=== PATIENT | male | born 1960 | race Hispanic/Latino ===

== ENCOUNTER 2022-03-03 08:36 | Day surgery (SDC) | payer BC ==
[2022-03-01 12:47] VITALS: BMI 35.6
== END 2022-03-03 10:43 | disposition home or self-care (01) ==
LOC: CSHSDC 08:36
PROVIDERS: ATTEND Internal Medicine Gastroenterology
PROC: 0DBK8ZZ Excision of Ascending Colon, Via Natural or Artificial Opening Endoscopic (ICD-10-PCS; principal; 2022-03-03)
DX: D12.2 Benign neoplasm of ascending colon (principal); K57.30 Diverticulosis of large intestine without perforation or abscess without bleeding; K64.9 Unspecified hemorrhoids; K21.9 Gastro-esophageal reflux disease without esophagitis; E11.9 Type 2 diabetes mellitus without complications; I10 Essential (primary) hypertension; E78.5 Hyperlipidemia, unspecified; Z79.4 Long term (current) use of insulin; Z79.899 Other long term (current) drug therapy
CPT/HCPCS: 88305

== ENCOUNTER 2022-08-27 08:38 | Emergency (ER) | payer BC ==
[2022-08-27] MEDS ORDERED: HYDROcodone/Acetaminophen 5/325 mg Tablet ONE (09:11)
[2022-08-27] MEDS ORDERED: Ketorolac Tromethamine 30 MG/ML VIAL ONE (09:14)
== END 2022-08-27 11:28 | disposition home or self-care (01) ==
LOC: CSHERS 08:38
DX: S52.572A Other intraarticular fracture of lower end of left radius, initial encounter for closed fracture (principal); E78.00 Pure hypercholesterolemia, unspecified; I10 Essential (primary) hypertension; E11.9 Type 2 diabetes mellitus without complications; Z79.84 Long term (current) use of oral hypoglycemic drugs; Z79.899 Other long term (current) drug therapy; W18.30XA Fall on same level, unspecified, initial encounter
CPT/HCPCS: 29085; 72100; 72131; J1885

== ENCOUNTER 2022-12-07 17:47 | Inpatient (IN) | payer BC ==
[2022-12-07 18:37] LABS: #Eosinphils 0.2 10x3/uL (0.0-0.5); #Monocytes 0.8 10x3/uL (0.0-1.1); #Neutrophils 5.1 10x3/uL (1.5-8.4); %Basophils 0.5 % (0.0-2.0); %Eosinophils 2.2 % (0.0-6.0); %Lymphocytes 19.7 % (18.0-47.0); %Neutrophils 67.3 % (40.0-75.0); Hemoglobin 13.4 g/dL (13.5-17.5); Mean Corpuscular HGB CONC 33.3 g/dL (32.0-36.0); Mean Corpuscular Hemoglobin 31.5 pg (27.0-33.0); Mean Corpuscular Volume 94.6 fl (81.2-95.1); Mean Platelet Volume 10.6 fl (7.4-10.4); Platelet Count 303 10x3/uL (150-450); Red Blood Cell (RBC) Count 4.26 10x6/uL (4.32-5.72); White Blood Cell (WBC) Count 7.6 10x3/uL (3.5-10.5)
[2022-12-07 18:50] LABS: ALT (SGPT) 24 U/L (8-55); AST (SGOT) 16 U/L (5-34); Albumin 3.9 g/dL (3.4-4.8); Alkaline Phosphatase 72 U/L (40-110); Anion Gap 14 mmol/L (10-20); BUN (Urea Nitrogen) 50 mg/dL (8.4-25.7); Bilirubin, Total 0.4 mg/dL (0.2-1.2); Calc. Creatinine Clearance 0 mL/min (70-130); Calcium 10.5 mg/dL (7.8-10.44); Carbon Dioxide 16 mmol/L (23-31); Chloride 106 mmol/L (98-107); Estimated GFR 15; Globulin 3.9 g/dL (2.4-3.5); Glucose 245 mg/dL (80-115); Magnesium 2.4 mg/dL (1.6-2.6); Protein, Total 7.8 g/dL (5.8-8.1); Sodium 131 mmol/L (136-145)
[2022-12-07] MEDS ORDERED: Ondansetron PF 4 MG/2 ML Vial ONE (19:27)
[2022-12-07 20:19] LABS: SARS-CoV-2 NAA Rapid Test Not Detected (NotDetected)
[2022-12-07] MEDS ORDERED: Ondansetron ODT 4 MG TAB PO PRN (20:43)
[2022-12-07] MEDS ORDERED: Glucagon 1 MG/ML KIT IM PRN (20:43)
[2022-12-07] MEDS ORDERED: HumaLOG 300 UNITS/3 ML VIAL SC PRN (20:43)
[2022-12-07] MEDS ORDERED: Dextrose 50% Abboject 50 ML SYRINGE SLOW IVP PRN (20:43)
[2022-12-07] MEDS ORDERED: Dextrose 5% in Water 1,000 ML IV PRN (20:43)
[2022-12-07] MEDS ORDERED: Heparin 5,000 UNITS/ML VIAL ONE (22:44)
[2022-12-07] MEDS: Heparin 5,000 UNITS/ML VIAL SC SCH (22:45)
[2022-12-07] MEDS: Sodium Chloride 0.9% 1,000 ML IV SCH (22:46)
[2022-12-08 03:34] LABS: #Eosinphils 0.3 10x3/uL (0.0-0.5); #Monocytes 0.9 10x3/uL (0.0-1.1); #Neutrophils 3.2 10x3/uL (1.5-8.4); %Basophils 0.4 % (0.0-2.0); %Eosinophils 4.1 % (0.0-6.0); %Monocytes 12.9 % (0.0-10.0); %Neutrophils 46.3 % (40.0-75.0); Hemoglobin 11.2 g/dL (13.5-17.5); Mean Corpuscular HGB CONC 32.7 g/dL (32.0-36.0); Mean Corpuscular Hemoglobin 31.5 pg (27.0-33.0); Mean Corpuscular Volume 96.3 fl (81.2-95.1); Mean Platelet Volume 10.3 fl (7.4-10.4); Platelet Count 213 10x3/uL (150-450); Red Blood Cell (RBC) Count 3.55 10x6/uL (4.32-5.72); White Blood Cell (WBC) Count 6.9 10x3/uL (3.5-10.5)
[2022-12-08 03:43] LABS: Anion Gap 11 mmol/L (10-20); BUN (Urea Nitrogen) 51 mg/dL (8.4-25.7); Calc. Creatinine Clearance 39 mL/min (70-130); Calcium 9.1 mg/dL (7.8-10.44); Carbon Dioxide 16 mmol/L (23-31); Chloride 111 mmol/L (98-107); Estimated GFR 20; Glucose 115 mg/dL (80-115); Magnesium 2.2 mg/dL (1.6-2.6); Phosphorus 4.6 mg/dL (2.3-4.7); Potassium 4.2 mmol/L (3.5-5.1); Sodium 134 mmol/L (136-145)
[2022-12-08] MEDS: Sodium Chloride 0.9% 1,000 ML IV SCH (05:57)
[2022-12-08] MEDS ORDERED: Heparin 5,000 UNITS/ML VIAL ONE ×2 (08:31→14:54)
[2022-12-08] MEDS ORDERED: Atorvastatin Calcium 40 MG TAB ONE (08:34)
[2022-12-08] MEDS: Atorvastatin Calcium 40 MG TAB PO SCH (08:50)
[2022-12-08] MEDS: Heparin 5,000 UNITS/ML VIAL SC SCH ×3 (08:50→21:34)
[2022-12-08] MEDS: Lactated Ringer's 1,000 ML IV SCH ×2 (11:28→17:20)
[2022-12-09] MEDS: Lactated Ringer's 1,000 ML IV SCH ×2 (03:41→09:29)
[2022-12-09 08:46] LABS: Anion Gap 10 mmol/L (10-20); BUN (Urea Nitrogen) 32 mg/dL (8.4-25.7); Calc. Creatinine Clearance 75 mL/min (70-130); Calcium 8.9 mg/dL (7.8-10.44); Carbon Dioxide 17 mmol/L (23-31); Chloride 117 mmol/L (98-107); Estimated GFR 42; Glucose 111 mg/dL (80-115); Potassium 4.4 mmol/L (3.5-5.1); Sodium 140 mmol/L (136-145)
[2022-12-09] MEDS: Heparin 5,000 UNITS/ML VIAL SC SCH (09:29)
[2022-12-09] MEDS: Atorvastatin Calcium 40 MG TAB PO SCH (09:29)
[2022-12-09 13:25] VITALS: BP 158/74; TEMP 98.1
== END 2022-12-09 13:46 | disposition home or self-care (01) | DRG 683 ==
LOC: CSHERS 17:47 → SUATTDRO 17:47 → CSHERHOLD 20:55 → CSHTELE 12-08 15:46
PROVIDERS: ADMIT Family Medicine; ATTEND Internal Medicine
DX: N17.9 Acute kidney failure, unspecified (principal); E87.1 Hypo-osmolality and hyponatremia; E86.0 Dehydration; I95.9 Hypotension, unspecified; R19.7 Diarrhea, unspecified; E78.5 Hyperlipidemia, unspecified; E78.00 Pure hypercholesterolemia, unspecified; E11.22 Type 2 diabetes mellitus with diabetic chronic kidney disease; N18.9 Chronic kidney disease, unspecified; E11.65 Type 2 diabetes mellitus with hyperglycemia; I12.9 Hypertensive chronic kidney disease with stage 1 through stage 4 chronic kidney disease, or unspecified chronic kidney disease; E87.8 Other disorders of electrolyte and fluid balance, not elsewhere classified; Z79.899 Other long term (current) drug therapy; Z79.4 Long term (current) use of insulin; Z79.84 Long term (current) use of oral hypoglycemic drugs; Z98.890 Other specified postprocedural states; Z20.822 Contact with and (suspected) exposure to COVID-19
CPT/HCPCS: 36415; 36416; 74176; 80048; 80053; 83735; 84100; 84443; 85025; 94760; 96374; J1644; J1815; J2405; J7050; J7120

== ENCOUNTER 2023-02-13 16:13 | Inpatient (IN) | payer BC ==
[2023-02-13 16:55] VITALS: BMI 33.0
[2023-02-13] MEDS ORDERED: Ondansetron PF 4 MG/2 ML Vial IVP PRN (17:25)
[2023-02-13] MEDS ORDERED: Acetaminophen 325 MG TAB PO PRN (17:25)
[2023-02-13] MEDS ORDERED: HYDROcodone/Acetaminophen 5/325 mg Tablet PO PRN (17:25)
[2023-02-13 17:42] LABS: #Eosinphils 0.2 10x3/uL (0.0-0.5); #Monocytes 0.6 10x3/uL (0.0-1.1); #Neutrophils 6.8 10x3/uL (1.5-8.4); %Basophils 0.3 % (0.0-2.0); %Eosinophils 1.8 % (0.0-6.0); %Lymphocytes 15.5 % (18.0-47.0); %Monocytes 6.6 % (0.0-10.0); %Neutrophils 75.2 % (40.0-75.0); Hematocrit 28.8 % (38.8-50.0); Hemoglobin 9.7 g/dL (13.5-17.5); Mean Corpuscular HGB CONC 33.7 g/dL (32.0-36.0); Mean Corpuscular Hemoglobin 31.4 pg (27.0-33.0); Mean Corpuscular Volume 93.2 fl (81.2-95.1); Mean Platelet Volume 9.7 fl (7.4-10.4); Platelet Count 426 10x3/uL (150-450); RBC Distribution Width 12.8 % (11.5-14.5); Red Blood Cell (RBC) Count 3.09 10x6/uL (4.32-5.72)
[2023-02-13] MEDS ORDERED: Dextrose 50% Abboject 50 ML SYRINGE SLOW IVP PRN (17:55)
[2023-02-13] MEDS ORDERED: Dextrose 5% in Water 1,000 ML IV PRN (17:55)
[2023-02-13] MEDS ORDERED: Glucagon 1 MG/ML KIT IM PRN (17:55)
[2023-02-13 18:03] LABS: Anion Gap 16 mmol/L (10-20); BUN (Urea Nitrogen) 29 mg/dL (8.4-25.7); Calc. Creatinine Clearance 55 mL/min (70-130); Carbon Dioxide 21 mmol/L (23-31); Chloride 98 mmol/L (98-107); Estimated GFR 33; Glucose 200 mg/dL (80-115); Potassium 4.1 mmol/L (3.5-5.1); Sodium 131 mmol/L (136-145)
[2023-02-14 04:47] LABS: Anion Gap 14 mmol/L (10-20); BUN (Urea Nitrogen) 27 mg/dL (8.4-25.7); Calc. Creatinine Clearance 64 mL/min (70-130); Calcium 8.7 mg/dL (7.8-10.44); Carbon Dioxide 24 mmol/L (23-31); Chloride 99 mmol/L (98-107); Estimated GFR 39; Glucose 143 mg/dL (80-115); Potassium 3.7 mmol/L (3.5-5.1); Sodium 133 mmol/L (136-145)
[2023-02-14 04:49] LABS: #Eosinphils 0.2 10x3/uL (0.0-0.5); #Monocytes 0.7 10x3/uL (0.0-1.1); #Neutrophils 5.6 10x3/uL (1.5-8.4); %Basophils 0.2 % (0.0-2.0); %Eosinophils 2.6 % (0.0-6.0); %Lymphocytes 18.8 % (18.0-47.0); %Monocytes 9.1 % (0.0-10.0); %Neutrophils 68.8 % (40.0-75.0); Hematocrit 27.7 % (38.8-50.0); Hemoglobin 9.2 g/dL (13.5-17.5); Mean Corpuscular HGB CONC 33.2 g/dL (32.0-36.0); Mean Corpuscular Hemoglobin 30.7 pg (27.0-33.0); Mean Corpuscular Volume 92.3 fl (81.2-95.1); Mean Platelet Volume 9.6 fl (7.4-10.4); Platelet Count 406 10x3/uL (150-450); RBC Distribution Width 12.8 % (11.5-14.5); White Blood Cell (WBC) Count 8.2 10x3/uL (3.5-10.5)
[2023-02-14] MEDS: Atorvastatin Calcium 40 MG TAB PO SCH (09:30)
[2023-02-14] MEDS: Allopurinol 300 MG TAB PO SCH (09:31)
[2023-02-14] MEDS: Lantus 1000 UNITS/10 ML VIAL SC SCH (09:34)
[2023-02-14] MEDS: Sodium Chloride 0.9% 1,000 ML IV SCH ×2 (09:41→21:36)
[2023-02-14] MEDS ORDERED: Magnevist 469MG/ML 20 ML VIAL ONE (10:38)
[2023-02-14] MEDS ORDERED: Bupivacaine 0.25% HCL 30 ML VIAL ONE (12:30)
[2023-02-14] MEDS ORDERED: Bupivacaine PF 0.5% 30 ML VIAL ONE (12:50)
[2023-02-14] MEDS ORDERED: CEFAZOLIN 2 GM VIAL ONE (13:17)
[2023-02-14] MEDS ORDERED: Vancomycin 1 GM VIAL ONE (13:18)
[2023-02-14] MEDS ORDERED: Dexamethasone 20 MG/5 ML VIAL ONE (13:25)
[2023-02-14] MEDS ORDERED: Ondansetron PF 4 MG/2 ML Vial ONE (13:25)
[2023-02-14] MEDS ORDERED: PROPOFOL 20 ML ONE (13:25)
[2023-02-14] MEDS ORDERED: fentaNYL 50 mcg/mL 1 mL Vial ONE (13:25)
[2023-02-14] MEDS ORDERED: Midazolam HCl 2 mg/2 ml Vial ONE (13:25)
[2023-02-14] MEDS ORDERED: Lidocaine 2% PF 5 ML VIAL ONE (13:26)
[2023-02-14 13:30] LABS: Hemoglobin A1c 9.1 % (4.0-6.0)
[2023-02-14] MEDS ORDERED: PHENYLEPHRINE-NS 100 MCG/ML 10 ML SYRINGE ONE (13:56)
[2023-02-14] MEDS ORDERED: Glycopyrrolate 0.2 MG/ML 5 ML SYRINGE ONE (14:08)
[2023-02-14] MEDS ORDERED: traMADol HCl 50 MG TAB PO PRN (18:45)
[2023-02-14] MEDS: Insulin Regular 300 UNITS/3 ML VIAL SC PRN (21:15)
[2023-02-15 04:05] LABS: Anion Gap 17 mmol/L (10-20); BUN (Urea Nitrogen) 34 mg/dL (8.4-25.7); Calc. Creatinine Clearance 61 mL/min (70-130); Calcium 8.6 mg/dL (7.8-10.44); Carbon Dioxide 19 mmol/L (23-31); Chloride 99 mmol/L (98-107); Estimated GFR 37; Glucose 337 mg/dL (80-115); Potassium 4.8 mmol/L (3.5-5.1); Sodium 130 mmol/L (136-145)
[2023-02-15 04:51] LABS: #Monocytes 0.1 10x3/uL (0.0-1.1); #Neutrophils 7.9 10x3/uL (1.5-8.4); %Basophils 0.1 % (0.0-2.0); %Lymphocytes 6.8 % (18.0-47.0); %Monocytes 1.6 % (0.0-10.0); %Neutrophils 91.2 % (40.0-75.0); Hematocrit 29.1 % (38.8-50.0); Hemoglobin 9.6 g/dL (13.5-17.5); Mean Corpuscular Hemoglobin 30.4 pg (27.0-33.0); Mean Corpuscular Volume 92.1 fl (81.2-95.1); Mean Platelet Volume 9.4 fl (7.4-10.4); Platelet Count 437 10x3/uL (150-450); RBC Distribution Width 12.6 % (11.5-14.5); Red Blood Cell (RBC) Count 3.16 10x6/uL (4.32-5.72); White Blood Cell (WBC) Count 8.6 10x3/uL (3.5-10.5)
[2023-02-15] MEDS: Lantus 1000 UNITS/10 ML VIAL SC SCH (05:55)
[2023-02-15] MEDS: Insulin Regular 300 UNITS/3 ML VIAL SC PRN (05:58)
[2023-02-15] MEDS: Atorvastatin Calcium 40 MG TAB PO SCH (08:18)
[2023-02-15] MEDS: Allopurinol 300 MG TAB PO SCH (08:18)
[2023-02-15 08:41] VITALS: TEMP 97.6
[2023-02-15] MEDS: Sodium Chloride 0.9% 1,000 ML IV SCH (09:25)
[2023-02-15] MEDS ORDERED: Amoxicillin/Potassium Clav 875 MG TAB PO SCH ×2 (11:45→21:00)
[2023-02-15 12:18] VITALS: BP 136/66
[2023-02-15] MEDS ORDERED: Morphine 2 MG/ML VIAL SLOW IVP SCH (13:00)
== END 2023-02-15 16:00 | disposition home or self-care (01) | DRG 617 ==
LOC: CSHTELE 16:25
PROVIDERS: ADMIT Internal Medicine; ATTEND Hospitalist
PROC: 0Y6P0Z0 Detachment at Right 1st Toe, Complete, Open Approach (ICD-10-PCS; principal; 2023-02-14)
DX: E11.69 Type 2 diabetes mellitus with other specified complication (principal); M86.9 Osteomyelitis, unspecified; E78.5 Hyperlipidemia, unspecified; M10.9 Gout, unspecified; Z79.84 Long term (current) use of oral hypoglycemic drugs; Z79.4 Long term (current) use of insulin; Z98.890 Other specified postprocedural states; Z83.3 Family history of diabetes mellitus; E11.40 Type 2 diabetes mellitus with diabetic neuropathy, unspecified; I12.9 Hypertensive chronic kidney disease with stage 1 through stage 4 chronic kidney disease, or unspecified chronic kidney disease; N18.30 Chronic kidney disease, stage 3 unspecified; E11.22 Type 2 diabetes mellitus with diabetic chronic kidney disease
CPT/HCPCS: 36415; 36416; 71045; 80048; 83036; 85025; 85652; 87070; 87077; 87102; 87116; 87205; 87206; 88305; 88311; 93005; 93010; 97139; A9579; C1713; J1100; J1815; J2001; J2250; J2272; J2405; J2704; J3010; J3370; J7050; S0020

== ENCOUNTER 2023-04-21 09:00 | Emergency (ER) | payer BC ==
[2023-04-21 10:31] LABS: #Eosinphils 0.2 10x3/uL (0.0-0.5); #Monocytes 0.4 10x3/uL (0.0-1.1); #Neutrophils 2.4 10x3/uL (1.5-8.4); %Basophils 0.8 % (0.0-2.0); %Eosinophils 3.8 % (0.0-6.0); %Lymphocytes 42.2 % (18.0-47.0); %Monocytes 8.1 % (0.0-10.0); %Neutrophils 44.9 % (40.0-75.0); Hematocrit 32.6 % (38.8-50.0); Hemoglobin 10.7 g/dL (13.5-17.5); Mean Corpuscular HGB CONC 32.8 g/dL (32.0-36.0); Mean Corpuscular Volume 94.5 fl (81.2-95.1); Mean Platelet Volume 10.5 fl (7.4-10.4); Platelet Count 213 10x3/uL (150-450); RBC Distribution Width 14.6 % (11.5-14.5); Red Blood Cell (RBC) Count 3.45 10x6/uL (4.32-5.72); White Blood Cell (WBC) Count 5.3 10x3/uL (3.5-10.5)
[2023-04-21 10:46] LABS: Anion Gap 17 mmol/L (10-20); BUN (Urea Nitrogen) 50 mg/dL (8.4-25.7); Calc. Creatinine Clearance 0 mL/min (70-130); Carbon Dioxide 19 mmol/L (23-31); Chloride 109 mmol/L (98-107); Sodium 140 mmol/L (136-145)
[2023-04-21 10:47] LABS: ALT (SGPT) 24 U/L (8-55); AST (SGOT) 21 U/L (5-34); Albumin 4.2 g/dL (3.4-4.8); Alkaline Phosphatase 59 U/L (40-110); Bilirubin, Total 0.5 mg/dL (0.2-1.2); Estimated GFR 31; Globulin 3.2 g/dL (2.4-3.5); Glucose 90 mg/dL (80-115); Magnesium 2.1 mg/dL (1.6-2.6); Protein, Total 7.4 g/dL (5.8-8.1)
[2023-04-21 14:49] LABS: Anion Gap 14 mmol/L (10-20); BUN (Urea Nitrogen) 47 mg/dL (8.4-25.7); Calc. Creatinine Clearance 0 mL/min (70-130); Calcium 9.1 mg/dL (7.8-10.44); Carbon Dioxide 18 mmol/L (23-31); Chloride 113 mmol/L (98-107); Estimated GFR 39; Glucose 73 mg/dL (80-115); Potassium 5.2 mmol/L (3.5-5.1); Sodium 140 mmol/L (136-145)
== END 2023-04-21 15:18 | disposition home or self-care (01) ==
LOC: CSHERS 09:00
DX: N17.9 Acute kidney failure, unspecified (principal); E11.9 Type 2 diabetes mellitus without complications; E78.5 Hyperlipidemia, unspecified; I10 Essential (primary) hypertension; Z79.84 Long term (current) use of oral hypoglycemic drugs; Z79.02 Long term (current) use of antithrombotics/antiplatelets
CPT/HCPCS: 36415; 80053; 83735; 85025; 93005; 96360; 96361

== ENCOUNTER 2023-06-22 13:35 | Inpatient (IN) | payer BC ==
[2023-06-22 14:27] LABS: #Eosinphils 0.2 10x3/uL (0.0-0.5); #Monocytes 0.5 10x3/uL (0.0-1.1); #Neutrophils 2.6 10x3/uL (1.5-8.4); %Basophils 0.8 % (0.0-2.0); %Eosinophils 4.2 % (0.0-6.0); %Lymphocytes 34.5 % (18.0-47.0); %Neutrophils 51.3 % (40.0-75.0); Hematocrit 30.7 % (38.8-50.0); Hemoglobin 10.2 g/dL (13.5-17.5); Mean Corpuscular HGB CONC 33.2 g/dL (32.0-36.0); Mean Corpuscular Hemoglobin 31.8 pg (27.0-33.0); Mean Corpuscular Volume 95.6 fl (81.2-95.1); Mean Platelet Volume 10.1 fl (7.4-10.4); Platelet Count 263 10x3/uL (150-450); RBC Distribution Width 14.3 % (11.5-14.5); Red Blood Cell (RBC) Count 3.21 10x6/uL (4.32-5.72)
[2023-06-22 14:47] LABS: ALT (SGPT) 16 U/L (8-55); AST (SGOT) 16 U/L (5-34); Albumin 3.7 g/dL (3.4-4.8); Alkaline Phosphatase 66 U/L (40-110); Anion Gap 14 mmol/L (10-20); BUN (Urea Nitrogen) 19 mg/dL (8.4-25.7); Bilirubin, Total 0.3 mg/dL (0.2-1.2); Calc. Creatinine Clearance 0 mL/min (70-130); Calcium 9.5 mg/dL (7.8-10.44); Carbon Dioxide 22 mmol/L (23-31); Chloride 109 mmol/L (98-107); Estimated GFR 53; Globulin 3.3 g/dL (2.4-3.5); Glucose 174 mg/dL (80-115); Potassium 4.7 mmol/L (3.5-5.1); Sodium 140 mmol/L (136-145)
[2023-06-22] MEDS ORDERED: Dextrose 50% Abboject 50 ML SYRINGE SLOW IVP PRN (18:45)
[2023-06-22] MEDS ORDERED: Insulin Regular 300 UNITS/3 ML VIAL SC PRN ×2 (18:45)
[2023-06-22] MEDS ORDERED: Glucagon 1 MG/ML KIT IM PRN (18:45)
[2023-06-22] MEDS ORDERED: Dextrose 5% in Water 1,000 ML IV PRN (18:45)
[2023-06-22] MEDS ORDERED: Ondansetron ODT 4 MG TAB PO PRN (18:46)
[2023-06-22] MEDS ORDERED: Acetaminophen 325 MG TAB PO PRN (18:46)
[2023-06-22] MEDS ORDERED: Ondansetron PF 4 MG/2 ML Vial IVP PRN (18:46)
[2023-06-22] MEDS ORDERED: Calcium Carbonate 500 MG ChewTAB PO PRN (18:46)
[2023-06-22] MEDS ORDERED: cefTRIAXone\\ROCEPHIN 2 GM in Sodium Chloride 0.9% 100 ML IVPB SCH ×2 (20:00→23:00)
[2023-06-22] MEDS ORDERED: VANCOMYCIN 1.75 GM/350 ML BAG 1.75 GM in Premix 1 BAG IVPB SCH (20:00)
[2023-06-22] MEDS ORDERED: Heparin 5,000 UNITS/ML VIAL SC SCH (21:00)
[2023-06-22 22:13] VITALS: BMI 32.8
[2023-06-22] MEDS: Sodium Chloride 0.9% 1,000 ML IV SCH (22:20)
[2023-06-22] MEDS: Famotidine 20 MG TAB PO SCH (22:21)
[2023-06-22] MEDS: metroNIDAZOLE 500 MG in Premix 1 BAG IVPB SCH (22:22)
[2023-06-22] MEDS: Lantus 1000 UNITS/10 ML VIAL SC SCH (22:28)
[2023-06-23] MEDS: metroNIDAZOLE 500 MG in Premix 1 BAG IVPB SCH ×2 (06:19→17:09)
[2023-06-23] MEDS: Famotidine 20 MG TAB PO SCH ×2 (08:42→21:00)
[2023-06-23] MEDS: Sodium Chloride 0.9% 1,000 ML IV SCH ×2 (08:59→21:25)
[2023-06-23] MEDS: Icosapent Ethyl 1 GM CAPSULE PO SCH ×2 (08:59→17:41)
[2023-06-23] MEDS: Amlodipine 5 MG TAB PO SCH (11:38)
[2023-06-23] MEDS: Hydrochlorothiazide 25 MG TAB PO SCH (11:38)
[2023-06-23] MEDS: Losartan 50 MG TAB PO SCH (11:39)
[2023-06-23] MEDS ORDERED: PROPOFOL 20 ML ONE ×2 (13:38→14:14)
[2023-06-23] MEDS ORDERED: Bupivacaine PF 0.5% 30 ML VIAL ONE (13:38)
[2023-06-23] MEDS ORDERED: Midazolam HCl 2 mg/2 ml Vial ONE (14:00)
[2023-06-23] MEDS ORDERED: fentaNYL 50 mcg/mL 1 mL Vial ONE (14:05)
[2023-06-23] MEDS ORDERED: traMADol HCl 50 MG TAB PO PRN (15:36)
[2023-06-23] MEDS: Senokot S 8.6-50 MG TAB PO SCH (21:00)
[2023-06-23] MEDS: Lantus 1000 UNITS/10 ML VIAL SC SCH (21:00)
[2023-06-23] MEDS: metroNIDAZOLE 500 MG TAB PO SCH (21:00)
[2023-06-23] MEDS: VANCOMYCIN 2 GRAM/400 ML BAG 2 GM in Premix 1 BAG IVPB SCH (23:10)
[2023-06-24] MEDS: cefTRIAXone\\ROCEPHIN 2 GM in Sodium Chloride 0.9% 100 ML IVPB SCH ×2 (00:13→23:54)
[2023-06-24 05:50] LABS: #Eosinphils 0.2 10x3/uL (0.0-0.5); #Monocytes 0.5 10x3/uL (0.0-1.1); #Neutrophils 2.8 10x3/uL (1.5-8.4); %Basophils 0.4 % (0.0-2.0); %Eosinophils 3.8 % (0.0-6.0); %Lymphocytes 31.8 % (18.0-47.0); %Monocytes 9.4 % (0.0-10.0); %Neutrophils 54.4 % (40.0-75.0); Hematocrit 26.7 % (38.8-50.0); Hemoglobin 9.1 g/dL (13.5-17.5); Mean Corpuscular HGB CONC 34.1 g/dL (32.0-36.0); Mean Corpuscular Volume 96.7 fl (81.2-95.1); Mean Platelet Volume 10.2 fl (7.4-10.4); Platelet Count 208 10x3/uL (150-450); RBC Distribution Width 14.4 % (11.5-14.5); Red Blood Cell (RBC) Count 2.76 10x6/uL (4.32-5.72); White Blood Cell (WBC) Count 5.2 10x3/uL (3.5-10.5)
[2023-06-24 06:15] LABS: Anion Gap 13 mmol/L (10-20); BUN (Urea Nitrogen) 18 mg/dL (8.4-25.7); Calc. Creatinine Clearance 88 mL/min (70-130); Calcium 8.6 mg/dL (7.8-10.44); Carbon Dioxide 21 mmol/L (23-31); Chloride 110 mmol/L (98-107); Estimated GFR 59; Glucose 129 mg/dL (80-115); Potassium 3.9 mmol/L (3.5-5.1); Sodium 140 mmol/L (136-145)
[2023-06-24] MEDS: Icosapent Ethyl 1 GM CAPSULE PO SCH ×2 (08:50→17:56)
[2023-06-24] MEDS: Senokot S 8.6-50 MG TAB PO SCH ×2 (08:51→20:41)
[2023-06-24] MEDS: metroNIDAZOLE 500 MG TAB PO SCH ×3 (08:51→20:42)
[2023-06-24] MEDS: Famotidine 20 MG TAB PO SCH ×2 (08:52→20:41)
[2023-06-24] MEDS: Heparin 5,000 UNITS/ML VIAL SC SCH ×2 (08:54→20:43)
[2023-06-24] MEDS: HYDROcodone/Acetaminophen 5/325 mg Tablet PO PRN ×3 (09:56→20:42)
[2023-06-24] MEDS: Amlodipine 5 MG TAB PO SCH (09:56)
[2023-06-24] MEDS: Hydrochlorothiazide 25 MG TAB PO SCH (09:56)
[2023-06-24] MEDS: Losartan 50 MG TAB PO SCH (09:58)
[2023-06-24] MEDS: Lantus 1000 UNITS/10 ML VIAL SC SCH (20:42)
[2023-06-24 22:09] LABS: Vancomycin, Trough 14.2 ug/mL
[2023-06-24] MEDS: VANCOMYCIN 2 GRAM/400 ML BAG 2 GM in Premix 1 BAG IVPB SCH (22:35)
[2023-06-25 06:40] LABS: Anion Gap 13 mmol/L (10-20); BUN (Urea Nitrogen) 24 mg/dL (8.4-25.7); Calc. Creatinine Clearance 92 mL/min (70-130); Calcium 8.9 mg/dL (7.8-10.44); Carbon Dioxide 20 mmol/L (23-31); Chloride 109 mmol/L (98-107); Estimated GFR 62; Glucose 129 mg/dL (80-115); Potassium 4.1 mmol/L (3.5-5.1); Sodium 138 mmol/L (136-145)
[2023-06-25 07:07] LABS: #Eosinphils 0.2 10x3/uL (0.0-0.5); #Monocytes 0.5 10x3/uL (0.0-1.1); #Neutrophils 2.1 10x3/uL (1.5-8.4); %Basophils 0.6 % (0.0-2.0); %Eosinophils 4.4 % (0.0-6.0); %Lymphocytes 41.5 % (18.0-47.0); %Monocytes 10.8 % (0.0-10.0); %Neutrophils 42.5 % (40.0-75.0); Hematocrit 27.9 % (38.8-50.0); Hemoglobin 9.3 g/dL (13.5-17.5); Mean Corpuscular HGB CONC 33.3 g/dL (32.0-36.0); Mean Corpuscular Hemoglobin 31.7 pg (27.0-33.0); Mean Corpuscular Volume 95.2 fl (81.2-95.1); Mean Platelet Volume 10.2 fl (7.4-10.4); Platelet Count 229 10x3/uL (150-450); RBC Distribution Width 14.3 % (11.5-14.5); Red Blood Cell (RBC) Count 2.93 10x6/uL (4.32-5.72)
[2023-06-25] MEDS: Famotidine 20 MG TAB PO SCH ×2 (09:22→21:58)
[2023-06-25] MEDS: metroNIDAZOLE 500 MG TAB PO SCH ×3 (09:22→21:58)
[2023-06-25] MEDS: Senokot S 8.6-50 MG TAB PO SCH ×2 (09:22→21:58)
[2023-06-25] MEDS: Clopidogrel Bisulfate 75 MG TAB PO SCH (09:23)
[2023-06-25] MEDS: Amlodipine 5 MG TAB PO SCH (09:23)
[2023-06-25] MEDS: Losartan 50 MG TAB PO SCH (09:24)
[2023-06-25] MEDS: Hydrochlorothiazide 25 MG TAB PO SCH (09:24)
[2023-06-25] MEDS: Heparin 5,000 UNITS/ML VIAL SC SCH ×2 (09:28→22:12)
[2023-06-25] MEDS: Icosapent Ethyl 1 GM CAPSULE PO SCH ×2 (09:29→16:40)
[2023-06-25] MEDS: Labetalol HCl 100 MG/20 ML VIAL SLOW IVP PRN (17:41)
[2023-06-25] MEDS: HYDROcodone/Acetaminophen 5/325 mg Tablet PO PRN (19:28)
[2023-06-25] MEDS: VANCOMYCIN 2 GRAM/400 ML BAG 2 GM in Premix 1 BAG IVPB SCH (21:59)
[2023-06-25] MEDS: Lantus 1000 UNITS/10 ML VIAL SC SCH (22:13)
[2023-06-26] MEDS: cefTRIAXone\\ROCEPHIN 2 GM in Sodium Chloride 0.9% 100 ML IVPB SCH (00:58)
[2023-06-26 05:23] LABS: #Eosinphils 0.2 10x3/uL (0.0-0.5); #Monocytes 0.5 10x3/uL (0.0-1.1); #Neutrophils 2.5 10x3/uL (1.5-8.4); %Basophils 0.6 % (0.0-2.0); %Eosinophils 4.4 % (0.0-6.0); %Lymphocytes 36.7 % (18.0-47.0); %Monocytes 10.4 % (0.0-10.0); %Neutrophils 47.7 % (40.0-75.0); Hematocrit 28.1 % (38.8-50.0); Hemoglobin 9.5 g/dL (13.5-17.5); Mean Corpuscular HGB CONC 33.8 g/dL (32.0-36.0); Mean Corpuscular Hemoglobin 31.9 pg (27.0-33.0); Mean Corpuscular Volume 94.3 fl (81.2-95.1); Mean Platelet Volume 10.1 fl (7.4-10.4); Platelet Count 221 10x3/uL (150-450); RBC Distribution Width 14.3 % (11.5-14.5); Red Blood Cell (RBC) Count 2.98 10x6/uL (4.32-5.72); White Blood Cell (WBC) Count 5.2 10x3/uL (3.5-10.5)
[2023-06-26 05:37] LABS: Anion Gap 12 mmol/L (10-20); BUN (Urea Nitrogen) 27 mg/dL (8.4-25.7); Calc. Creatinine Clearance 94 mL/min (70-130); Calcium 9.1 mg/dL (7.8-10.44); Carbon Dioxide 22 mmol/L (23-31); Chloride 110 mmol/L (98-107); Estimated GFR 63; Glucose 97 mg/dL (80-115); Potassium 3.9 mmol/L (3.5-5.1); Sodium 140 mmol/L (136-145)
[2023-06-26] MEDS: HYDROcodone/Acetaminophen 5/325 mg Tablet PO PRN (11:24)
[2023-06-26] MEDS: Heparin 5,000 UNITS/ML VIAL SC SCH ×2 (11:24→23:01)
[2023-06-26] MEDS: Clopidogrel Bisulfate 75 MG TAB PO SCH (11:25)
[2023-06-26] MEDS: Famotidine 20 MG TAB PO SCH ×2 (11:25→23:00)
[2023-06-26] MEDS: Senokot S 8.6-50 MG TAB PO SCH ×2 (11:25→23:00)
[2023-06-26] MEDS: Losartan 50 MG TAB PO SCH (11:27)
[2023-06-26] MEDS: metroNIDAZOLE 500 MG TAB PO SCH (11:27)
[2023-06-26] MEDS: Hydrochlorothiazide 25 MG TAB PO SCH (11:28)
[2023-06-26] MEDS: Icosapent Ethyl 1 GM CAPSULE PO SCH ×2 (11:28→18:18)
[2023-06-26] MEDS: Amlodipine 5 MG TAB PO SCH (11:28)
[2023-06-26] MEDS ORDERED: Piperacillin/Tazobactam 3.375 GM in Sodium Chloride 0.9% 100 ML IVPB SCH (15:00)
[2023-06-26] MEDS: Piperacillin/Tazobactam 3.375 GM in Sodium Chloride 0.9% 100 ML IVPB SCH (18:18)
[2023-06-26] MEDS: Lantus 1000 UNITS/10 ML VIAL SC SCH (23:07)
[2023-06-26] MEDS: Labetalol HCl 100 MG/20 ML VIAL SLOW IVP PRN (23:18)
[2023-06-27] MEDS: Piperacillin/Tazobactam 3.375 GM in Sodium Chloride 0.9% 100 ML IVPB SCH ×4 (06:18→21:38)
[2023-06-27] MEDS: Losartan 50 MG TAB PO SCH (10:11)
[2023-06-27] MEDS: Famotidine 20 MG TAB PO SCH ×2 (10:12→21:37)
[2023-06-27] MEDS: Clopidogrel Bisulfate 75 MG TAB PO SCH (10:12)
[2023-06-27] MEDS: Senokot S 8.6-50 MG TAB PO SCH ×2 (10:12→21:37)
[2023-06-27] MEDS: Hydrochlorothiazide 25 MG TAB PO SCH (10:12)
[2023-06-27] MEDS: Amlodipine 5 MG TAB PO SCH (10:13)
[2023-06-27] MEDS: Heparin 5,000 UNITS/ML VIAL SC SCH ×2 (10:15→22:01)
[2023-06-27] MEDS: Icosapent Ethyl 1 GM CAPSULE PO SCH ×2 (10:44→16:21)
[2023-06-27 14:19] LABS: PTT 27.7 sec (22.0-33.0); Prothrombin Time 10.5 sec (9.5-12.1)
[2023-06-27] MEDS: Labetalol HCl 100 MG/20 ML VIAL SLOW IVP PRN (16:22)
[2023-06-27] MEDS: Lantus 1000 UNITS/10 ML VIAL SC SCH (21:38)
[2023-06-27] MEDS: HYDROcodone/Acetaminophen 5/325 mg Tablet PO PRN (21:47)
[2023-06-28] MEDS: Piperacillin/Tazobactam 3.375 GM in Sodium Chloride 0.9% 100 ML IVPB SCH ×2 (05:55→14:14)
[2023-06-28 06:58] LABS: #Eosinphils 0.2 10x3/uL (0.0-0.5); #Monocytes 0.5 10x3/uL (0.0-1.1); #Neutrophils 2.4 10x3/uL (1.5-8.4); %Basophils 0.4 % (0.0-2.0); %Eosinophils 4.7 % (0.0-6.0); %Lymphocytes 33.6 % (18.0-47.0); %Monocytes 11.1 % (0.0-10.0); Hematocrit 27.8 % (38.8-50.0); Hemoglobin 9.5 g/dL (13.5-17.5); Mean Corpuscular HGB CONC 34.2 g/dL (32.0-36.0); Mean Corpuscular Hemoglobin 32.3 pg (27.0-33.0); Mean Corpuscular Volume 94.6 fl (81.2-95.1); Mean Platelet Volume 9.8 fl (7.4-10.4); Platelet Count 214 10x3/uL (150-450); RBC Distribution Width 14.3 % (11.5-14.5); Red Blood Cell (RBC) Count 2.94 10x6/uL (4.32-5.72); White Blood Cell (WBC) Count 4.9 10x3/uL (3.5-10.5)
[2023-06-28 07:24] LABS: Anion Gap 12 mmol/L (10-20); BUN (Urea Nitrogen) 29 mg/dL (8.4-25.7); Calc. Creatinine Clearance 76 mL/min (70-130); Calcium 8.9 mg/dL (7.8-10.44); Carbon Dioxide 23 mmol/L (23-31); Chloride 109 mmol/L (98-107); Estimated GFR 49; Glucose 102 mg/dL (80-115); Potassium 3.7 mmol/L (3.5-5.1); Sodium 140 mmol/L (136-145)
[2023-06-28] MEDS: Heparin 5,000 UNITS/ML VIAL SC SCH (08:44)
[2023-06-28] MEDS: Losartan 50 MG TAB PO SCH (08:45)
[2023-06-28] MEDS: Amlodipine 5 MG TAB PO SCH (08:45)
[2023-06-28] MEDS: Hydrochlorothiazide 25 MG TAB PO SCH (08:46)
[2023-06-28] MEDS: Famotidine 20 MG TAB PO SCH (08:46)
[2023-06-28] MEDS: Clopidogrel Bisulfate 75 MG TAB PO SCH (08:46)
[2023-06-28] MEDS: Senokot S 8.6-50 MG TAB PO SCH (08:46)
[2023-06-28] MEDS: Icosapent Ethyl 1 GM CAPSULE PO SCH ×2 (08:47→17:29)
[2023-06-28] MEDS: Labetalol HCl 100 MG/20 ML VIAL SLOW IVP PRN (14:13)
[2023-06-28] MEDS ORDERED: Amlodipine 5 MG TAB PO SCH (14:15)
[2023-06-28 16:35] VITALS: BP 154/70; TEMP 98.2
[2023-06-30 15:14] LABS: Fungus Stain Final report (.)
== END 2023-06-28 19:20 | disposition home health service (06) | DRG 617 ==
LOC: CSHERS 13:35 → CSHERHOLD 16:49 → CSHTELE 20:34
PROVIDERS: ADMIT Internal Medicine; ATTEND Internal Medicine
PROC: 0Y6R0Z0 Detachment at Right 2nd Toe, Complete, Open Approach (ICD-10-PCS; 2023-06-23)
PROC: 02HV33Z Insertion of Infusion Device into Superior Vena Cava, Percutaneous Approach (ICD-10-PCS; principal; 2023-06-27)
PROC: B548ZZA Ultrasonography of Superior Vena Cava, Guidance (ICD-10-PCS; 2023-06-27)
DX: E11.69 Type 2 diabetes mellitus with other specified complication (principal); L03.115 Cellulitis of right lower limb; M86.171 Other acute osteomyelitis, right ankle and foot; E11.628 Type 2 diabetes mellitus with other skin complications; E78.5 Hyperlipidemia, unspecified; E11.40 Type 2 diabetes mellitus with diabetic neuropathy, unspecified; N18.2 Chronic kidney disease, stage 2 (mild); E11.22 Type 2 diabetes mellitus with diabetic chronic kidney disease; M10.9 Gout, unspecified; I12.9 Hypertensive chronic kidney disease with stage 1 through stage 4 chronic kidney disease, or unspecified chronic kidney disease; D63.1 Anemia in chronic kidney disease; N17.9 Acute kidney failure, unspecified; G89.18 Other acute postprocedural pain; Z98.890 Other specified postprocedural states; Z79.899 Other long term (current) drug therapy; Z79.84 Long term (current) use of oral hypoglycemic drugs; Z86.16 Personal history of COVID-19; Z89.411 Acquired absence of right great toe; Z95.820 Peripheral vascular angioplasty status with implants and grafts
CPT/HCPCS: 36415; 36416; 36569; 71046; 80048; 80053; 80202; 85025; 85610; 85730; 86140; 87070; 87102; 87205; 87206; 93005; 93010; 94760; 94762; 97139; C1713; C1751; J0696; J1644; J1815; J2250; J2543; J2704; J3010; J3370; J3490; J7050; S0020